=== PATIENT | male | born 1945 | race Caucasian/White ===

== ENCOUNTER → 2017-11-15 | Outpatient (CLI) | payer MEDICARE | END | disposition home or self-care (01) | LOC: LAB SHORT 07:48 → PLD 07:48 | DX: C44.219 Basal cell carcinoma of skin of left ear and external auricular canal (principal) | CPT/HCPCS: 88305 ==

== ENCOUNTER 2024-12-28 08:19 | Emergency (ER) | payer OTHER ==
[~2024-12-28] VITALS: Ht 170.2 cm; Wt 59.0 kg
[2024-12-28 09:05] LABS: Source, Urine Foley catheter
[2024-12-28] MEDS ORDERED: LATANOPROST2.5 M3 BOTHEYES (09:06)
[2024-12-28 09:15] LABS: Appearance, Urine Clear (Clear); Bilirubin, Urine Neg (Neg); Blood, Urine 5+ (Neg); Color, Urine Yellow (P-Yellow); Glucose Qualitative, Urine Neg (Neg); Ketones, Urine Neg (Neg); Leukocyte Esterase, Urine Neg (Neg); Nitrite, Urine Neg (Neg); Protein, Urine Neg (Neg); Specific Gravity, Urine 1.015 (1.003-1.022); Urobilinogen, Urine NORM (Normal)
[2024-12-28 09:50] LABS: White Blood Cells, Urine 0-2 /hpf (0-5)
[2024-12-28 09:52] LABS: Bacteria Rare /hpf; Mucus Light (0-Heavy); Renal Epithelial Rare /hpf (0-Rare); Squamous Epithelial Cells Not Seen /hpf (Few)
[2024-12-28] MEDS ORDERED: TAMS.4ER PO (10:12)
[2024-12-28 10:40] VITALS: BP 136/76
== END 2024-12-28 10:43 | disposition home or self-care (01) ==
LOC: ER 08:19
PROVIDERS: Student in an Organized Health Care Education/Training Program
DX: R33.9 Retention of urine, unspecified (principal); H40.9 Unspecified glaucoma; Z79.899 Other long term (current) drug therapy
CPT/HCPCS: 51702; 51798; 81001; 99283-25

== ENCOUNTER 2025-01-04 10:48 | Emergency (ER) | payer OTHER ==
[~2025-01-04] VITALS: Ht 170.2 cm; Wt 59.0 kg
[~2025-01-04 10:48] MED LIST: LATANOPROST2.5 M3 BOTHEYES; TAMS.4ER PO
[2025-01-04 10:55] VITALS: BP 187/84
== END 2025-01-04 11:20 | disposition home or self-care (01) ==
LOC: ER 10:48
DX: Z46.6 Encounter for fitting and adjustment of urinary device (principal); Z79.899 Other long term (current) drug therapy
CPT/HCPCS: 99283